=== PATIENT | male | born 1970 | race Caucasian/White ===

== ENCOUNTER 2017-04-20 16:25 | Emergency (ER) | payer OTHER ==
[~2017-04-20] VITALS: Ht 185.4 cm; Wt 86.0 kg
[~2017-04-20 16:25] MED LIST: ADVI200C9 PO; DICL-86 PO; SOMA350T PO; TAB-TAB PO
[2017-04-20 16:34] VITALS: BP 167/84; PULSE 83; RESP 16; TEMP 98.5; O2SAT 97
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
[2017-04-20] MEDS ORDERED: IBUP200C PO (18:03)
[2017-04-20] MEDS ORDERED: BACL10TA PO (18:08)
== END 2017-04-20 18:58 | disposition home or self-care (01) ==
LOC: PHED 16:25 → PHEFT 18:58
DX: S39.012A Strain of muscle, fascia and tendon of lower back, initial encounter (principal); S66.911A Strain of unspecified muscle, fascia and tendon at wrist and hand level, right hand, initial encounter; S76.011A Strain of muscle, fascia and tendon of right hip, initial encounter; V43.52XA Car driver injured in collision with other type car in traffic accident, initial encounter; Z72.0 Tobacco use
CPT/HCPCS: 99283